=== PATIENT | female | born 1960 | race Caucasian/White ===

== ENCOUNTER 2016-05-28 20:26 | Inpatient (IN) | payer MEDICARE ==
--- NOTE | 2016-05-28 20:45 | EDPRACDOC ---
- History of Present Illness HPI: PT WAS INVOLVED IN AN ARGUMENT WITH HER SISTER OVER HER SS CHECK. PT TOOK A HANDFUL OF TYLENOL 500 MG TABS (AFTER COUNTING 71 TABS - 35,500 MG). MILD ABD PAIN. NO OTHER COMPLAINTS. DID NOT HAVE A SUICIDAL PLAN BEFORE THE ARGUMENT. H/O DEPRESSION. PT INGESTED TYLENOL ABOUT 1730. <Bhavin Herrmann - Last Filed: 05/28/16 22:55> <Annita Singleton - Last Filed: 05/29/16 02:28> - General Information Stated Complaint: OVERDOSE Time Seen by Provider: 05/28/16 20:29 Home Medications: Home Medications Acetaminophen [Tylenol Extra Strength] 35,500 mg PO .TODAY 05/28/16 Diazepam [Valium] 2 mg PO BID 05/28/16 Esomeprazole Mag Trihydrate [Nexium] 40 mg PO DAILY 05/28/16 Estradiol [Estrace] 1 mg PO DAILY 05/28/16 Isosorbide Mononitrate [Isosorbide Mononitrate ER] 30 mg PO DAILY 05/28/16 Lisinopril [Prinivil] 10 mg PO DAILY 05/28/16 Lurasidone HCl [Latuda] 80 mg PO DAILY 05/28/16 Metformin HCl 500 mg PO BID 05/28/16 Ondansetron HCl [Zofran] 8 mg PO Q8H PRN 05/28/16 Pravastatin [Pravachol] 40 mg PO HS 05/28/16 Tizanidine HCl 4 mg PO Q8H PRN 05/28/16 Tramadol HCl [Ultram] 50 mg PO Q6H PRN 05/28/16 Venlafaxine HCl ER [Effexor XR] 37.5 mg PO DAILY 05/28/16 Venlafaxine HCl [Effexor Xr] 150 mg PO DAILY 05/28/16 Allergies/Adverse Reactions: Allergies Allergy/AdvReac Type Severity Reaction Status Date / Time codeine Allergy Hives* Verified 05/28/16 20:57 - Treatment Prior to ED Arrival Reported Medications/Treatment BLUE[employer]INTER Ibuprofen/Acetaminophen (Dose/ 2 hand fulls approx 5pm Time) EMS Treatment BLS <Annita Singleton - Last Filed: 05/29/16 02:28> ED Past Medical History - History Reviewed Yes Nurses notes reviewed and agree except as marked <Bhavin Herrmann - Last Filed: 05/28/16 22:55> EDM Review of Systems - Review of Systems ROS Negative Except as Marked: Yes All systems reviewed and were negative except as marked Constitutional: No Symptoms Reported Eyes: No Symptoms Reported Mouth: No Symptoms Reported Respiratory: No Symptoms Reported Cardiovascular: No Symptoms Reported Genitourinary: No Symptoms Reported Neurological: No Symptoms Reported Musculoskeletal: No Symptoms Reported Integumentary: No Symptoms Reported Allergic/Immunologic: No Symptoms Reported <Bhavin Herrmann - Last Filed: 05/28/16 22:55> - Physical Exam Constitutional: Alert (Awake), No apparent distress Oriented to: Time, Person, Place Last recorded Vital Signs: Oxygen Pulse Oxygen Saturation O2 Device Oxygen Flow Rate Fraction of Inspired Oxygen ( FIO2) - HEENT Head: Normal ( normocephalic) Eye Exam: Normal (PERRL, EOMI, Sclera white) Oropharynx: Normal (Pharynx:Moist without exudate,Gums-no swelling) Nose: No Symptoms Reported (septum midline) Neck: Normal (FROM, trachea at midline) - Respiratory/Cardiovascular Respiratory: Normal - CTA (BBS clear to auscultation without adventitious sounds ) Cardiovascular: Normal (RRR without murmur, gallop or rub) - GI Auscultation: Normal (NABS) Palpation: Normal (Soft,No rebound or guarding, non distended) Tenderness: Non tender Michael's Sign: Negative - Musculoskeletal Back: Normal (Non-Tender) Extremities: Normal (Normal tone, Pulses 2+ No cyanosis or edema, FROM) - Integumentary Skin: Normal, Warm, Dry Lymphatics: Normal (no adenopathy) - Neurologic Memory Impaired: Normal Motor Function: Normal (Normal tone, Pulses 2+ No cyanosis or edema, FROM) Cranial Nerve: Normal (CN II-X11 intact sensation, strength 5/5) Cerebellar: Normal Mood Description: Normal Perception: Normal <Bhavin Herrmann - Last Filed: 05/28/16 22:55> - Physical Exam Last recorded Vital Signs: Last Vital Signs Temp 98.3 F 05/28/16 23:25 Pulse 60 05/28/16 23:25 Resp 18 05/28/16 23:25 BP 157/81 05/28/16 23:25 Pulse Ox 95 05/28/16 23:25 Oxygen Pulse Oxygen Saturation 92 O2 Device Room Air Oxygen Flow Rate Fraction of Inspired Oxygen ( FIO2) <Annita Singleton Lacy - Last Filed: 05/29/16 02:28> - Results 05/28/16 21:15 05/28/16 21:15 - EKG EKG #1 EKG Time: 20:57 -: Yes EKG interpreted by me Rate: bpm: 63 [place]: Normal Rhythm: NSR Block: None Hypertrophy: None ST: Nonsp Comments: ABNORMAL EKG <Bhavin Herrmann - Last Filed: 05/28/16 22:55> - Re-evaluation Re-evaluation 2 Re-evaluation Time: 02:26 REPEAT TYLENOL LEVEL WAS GOING TO TO 95. HAVE DISCUSSED WITH POISON CONTROL THEY RECOMMENDED IN ACETYLCYSTEINE TREATMENT. DR. LIANG HAS BEEN CONTACTED FOR ADMISSION PATIENT BEEN BROUGHT BACK TO EMERGENCY DEPARTMENT IV WILL BE PLACED PROTOCOL WILL BE INITIATED. - Results 05/28/16 21:15 05/28/16 21:15 WBC 9.2 xk/uL (3.8-10.8) 05/28/16 21:15 RBC 4.83 xM/uL (4.20-5.40) 05/28/16 21:15 Hgb 14.5 g/dL (12.0-16.0) 05/28/16 21:15 Hct 42.2 % (36-47) 05/28/16 21:15 MCV 87 fL (81-99) 05/28/16 21:15 MCH 30.0 pg (27-32) 05/28/16 21:15 MCHC 34.4 g/dl (33-36) 05/28/16 21:15 RDW 13.7 % (11.5-14.5) 05/28/16 21:15 Plt Count 203 xk/uL (130-400) 05/28/16 21:15 MPV 7.5 fL (7.4-10.4) 05/28/16 21:15 Neut % (Auto) 53.0 % (45-76) 05/28/16 21:15 Lymph % (Auto) 35.5 % (17-44) 05/28/16 21:15 [place] % (Auto) 8.2 % (3-10) 05/28/16 21:15 Eos % (Auto) 2.1 % (0-5) 05/28/16 21:15 Baso % (Auto) 1.2 % (0-2) 05/28/16 21:15 Absolute Neuts (auto) 4.88 xk/uL (1.7-8.2) 05/28/16 21:15 Absolute Lymphs (auto) 3.22 xk/uL (0.65-4.75) 05/28/16 21:15 PT 11.0 SEC (9.2-11.2) 05/28/16 21:15 INR 1.1 05/28/16 21:15 APTT 26.0 SEC (22-35) 05/28/16 21:15 Sodium 128 mEq/L (137-146) L 05/28/16 21:15 Potassium 3.9 mEq/L (3.5-5.1) 05/28/16 21:15 Chloride 94 mEq/L (98-107) L 05/28/16 21:15 Carbon Dioxide 23 mMOL/L (22-33) 05/28/16 21:15 Anion Gap 15 mEq/L (8-16) 05/28/16 21:15 BUN 9 MG/DL (7-17) 05/28/16 21:15 Creatinine 0.90 MG/DL (0.52-1.04) 05/28/16 21:15 Estimated GFR (MDRD) > 60 mL/min (>=60) 05/28/16 21:15 Glucose 124 MG/DL (70-99) H 05/28/16 21:15 Calculated Osmolality 247 MOs/Kg (270-290) L 05/28/16 21:15 Calcium 9.1 MG/DL (8.4-10.2) 05/28/16 21:15 Corrected Calcium 9.2 MG/DL (8.4-10.2) 05/28/16 21:15 Total Bilirubin 0.4 MG/DL (0.2-1.3) 05/28/16 21:15 AST 45 IU/L (14-36) H 05/28/16 21:15 ALT 39 IU/L (9-52) 05/28/16 21:15 Alkaline Phosphatase 72 IU/L (38-126) 05/28/16 21:15 Total Protein 6.9 G/DL (6.3-8.2) 05/28/16 21:15 Albumin 3.9 G/DL (3.5-5.0) 05/28/16 21:15 Salicylates < 1.0 MG/DL (<20) 05/28/16 21:15 Urine Opiates Screen Neg (NEGATIVE) 05/28/16 20:40 Ur Oxycodone Screen Neg (NEGATIVE) 05/28/16 20:40 Urine Methadone Screen Neg (NEGATIVE) 05/28/16 20:40 Acetaminophen 95.0 MCG/ML (<10) H 05/29/16 00:31 Ur Barbiturates Screen Neg (NEGATIVE) 05/28/16 20:40 Ur Tricyclics Screen Neg (NEGATIVE) 05/28/16 20:40 Ur Phencyclidine Scrn Neg (NEGATIVE) 05/28/16 20:40 Ur Amphetamines Screen Neg (NEGATIVE) 05/28/16 20:40 U Methamphetamines Scrn Neg (NEGATIVE) 05/28/16 20:40 Urine MDMA Screen Neg (NEGATIVE) 05/28/16 20:40 U Benzodiazepines Scrn *positive* (NEGATIVE) H 05/28/16 20:40 Urine Cocaine Screen Neg (NEGATIVE) 05/28/16 20:40 Ur THC Screen Neg (NEGATIVE) 05/28/16 20:40 Plasma/Serum Ethyl Alc % (<0.01) 05/28/16 21:15 Lab Results 05/28/16 05/28/16 05/28/16 21:15 21:15 21:15 WBC 9.2 RBC 4.83 Hgb 14.5 Hct 42.2 MCV 87 MCH 30.0 MCHC 34.4 RDW 13.7 Plt Count 203 MPV 7.5 Neut % (Auto) 53.0 Lymph % (Auto) 35.5 [place] % (Auto) 8.2 Eos % (Auto) 2.1 Baso % (Auto) 1.2 Absolute Neuts (auto) 4.88 Absolute Lymphs (auto) 3.22 PT 11.0 INR 1.1 APTT 26.0 Sodium 128 L Potassium 3.9 Chloride 94 L Carbon Dioxide 23 Anion Gap 15 BUN 9 Creatinine 0.90 Estimated GFR (MDRD) > 60 Glucose 124 H Calculated Osmolality 247 L Calcium 9.1 Corrected Calcium 9.2 Total Bilirubin 0.4 AST 45 H ALT 39 Alkaline Phosphatase 72 Total Protein 6.9 Albumin 3.9 Salicylates < 1.0 Urine Opiates Screen Ur Oxycodone Screen Urine Methadone Screen Acetaminophen 60.0 H Ur Barbiturates Screen Ur Tricyclics Screen Ur Phencyclidine Scrn Ur Amphetamines Screen U Methamphetamines Scrn Urine MDMA Screen U Benzodiazepines Scrn Urine Cocaine Screen Ur THC Screen Plasma/Serum Ethyl Alc 05/28/16 20:40 WBC RBC Hgb Hct MCV MCH MCHC RDW Plt Count MPV Neut % (Auto) Lymph % (Auto) [place] % (Auto) Eos % (Auto) Baso % (Auto) Absolute Neuts (auto) Absolute Lymphs (auto) PT INR APTT Sodium Potassium Chloride Carbon Dioxide Anion Gap BUN Creatinine Estimated GFR (MDRD) Glucose Calculated Osmolality Calcium Corrected Calcium Total Bilirubin AST ALT Alkaline Phosphatase Total Protein Albumin Salicylates Urine Opiates Screen Neg Ur Oxycodone Screen Neg Urine Methadone Screen Neg Acetaminophen Ur Barbiturates Screen Neg Ur Tricyclics Screen Neg Ur Phencyclidine Scrn Neg Ur Amphetamines Screen Neg U Methamphetamines Scrn Neg Urine MDMA Screen Neg U Benzodiazepines Scrn *positive* H Urine Cocaine Screen Neg Ur THC Screen Neg Plasma/Serum Ethyl Alc <Annita Singleton - Last Filed: 05/29/16 02:28> - Departure Yes I personally saw and evaluated the patient. <Bhavin Herrmann - Last Filed: 05/28/16 22:55> - Departure Disposition: Admit IP To This Hospital Decision to Admit Time: 02:27 Decision to admit date: 05/29/16 Decision to admit: from ED - Physician Consulted Hospitalist Time Called: 02:27 Provider Called: Michele Franklin Time [employer] Returned Call: 02:27 <Annita Singleton - Last Filed: 05/29/16 02:28> - Departure Final Diagnosis: Depression Qualifiers: Depression Type: unspecified Qualified Code(s): F32.9 - Major depressive disorder, single episode, unspecified Tylenol overdose Qualifiers: Encounter type: initial encounter Injury intent: intentional self-harm Qualified Code(s): T39.1X2A - Poisoning by 4-Aminophenol derivatives, intentional self-harm, initial encounter
[2016-05-28] MEDS ORDERED: ACTIVATED CHARCOAL 25 GM in AQUEOUS SUSP PO ONE (20:49)
[2016-05-28 20:52] LABS: ALL NEG? NO
[2016-05-28 20:59] LABS: MDMA* NEG (NEGATIVE); METHAMPHETAMINES NEG (NEGATIVE); OXYCODONE NEG (NEGATIVE)
[2016-05-28 21:25] LABS: AUTOMATED BASOPHIL 1.2 % (0-2); AUTOMATED EOSINOPHIL 2.1 % (0-5); AUTOMATED LYMPH 35.5 % (17-44); AUTOMATED MONOCYTE 8.2 % (3-10); MPV 7.5 fL (7.4-10.4)
[2016-05-28 21:36] LABS: PT-INR 1.1
[2016-05-28 21:42] LABS: BLOOD UREA NITROGEN 9 MG/DL (7-17); CALC CORRECTED 9.2 MG/DL (8.4-10.2); CALCIUM 9.1 MG/DL (8.4-10.2); CALCULATED OSMOLALITY 247 MOs/Kg (270-290); CHLORIDE 94 mEq/L (98-107); ETOH-MGDL < 10 mg/dL; GLUCOSE 124 MG/DL (70-99); SODIUM LEVEL 128 mEq/L (137-146); TOTAL PROTEIN 6.9 G/DL (6.3-8.2)
[2016-05-28] MEDS ORDERED: ONDANSETRON HCL 4 MG ODT TAB PO PRN (22:56)
[2016-05-28] MEDS ORDERED: IBUPROFEN 400 MG TAB PO PRN (22:56)
[2016-05-28] MEDS ORDERED: PROMETHAZINE 25 MG TAB PO PRN (22:56)
[2016-05-28] MEDS ORDERED: NICOTINE 21 MG PATCH TOP SCH (23:00)
[2016-05-29] MEDS ORDERED: Non-Formulary Medication 1 in D5W 100 ML IV SCH ×2 (02:45→04:00)
[2016-05-29] MEDS ORDERED: ACETYLCYSTEINE IV ONE (03:00)
[2016-05-29] MEDS ORDERED: D5W IV ONE (03:00)
--- NOTE | 2016-05-29 03:08 | HISTPHYS ---
- Chief Complaint overdose - History of Present Illness PRIMARY CARE PROVIDER: FIFI Donovan, in [facility] HPI: The patient is a 56 yo woman who had an argument with her sister then took multiple tables of Tylenol. She took the pills right after the argument, yesterday, 05/28/16 around 6 pm. She took 3 handfuls of Tylenol, 500 mg tablets; she took them all at once. She had taken her evening doses of prescribed medications before that. She felt like there were too many burdens on her and she "just wanted to get away from it." She is evasive when asked if she was trying to kill herself and does not answer the question. She was brought to the emergency department and had treatment with activated charcoal. After treatment, she has had some abdominal pain. Onset: today Duration: intermittent. Location: abdominal pain in the lower abdomen but also generalized. Radiation: none. Character: 12/25. Steady discomfort. Alleviated by: Nothing. Exacerbated by: Nothing. Associated Symptoms: Nausea. No vomiting. No diarrhea, constipation, or bloody stool. Mild chest pain, started today. Treatments: none at home except usual medications. Regarding the chest pain: Onset: today Duration: intermittent. Location: Radiation: none. Character: 11/24. Dull. It hurts when she breathes. Alleviated by: Nothing. Exacerbated by: Nothing. Associated Symptoms: Nausea. No vomiting. No diarrhea, constipation, or bloody stool. Shortness of breath. Diaphoresis on the way to the hospital. No palpitations. Coughing and wheezing. Reports feeling anxious and like she was having a panic attack. Headache, all over. No focal weakness. Treatments: none at home except usual medications. Other: Patient admits to drinking copious amounts of water at home. She states she drinks the water because her mouth is always dry. Review of old records shows that she had an episode of hyponatremia in the past, but other records show a normal sodium level. - Medical History Cardiac History: Reports: Hypertension, Hypercholesterolemia Respiratory History: Reports: Asthma, COPD (Exacerbation 01/2016 at [facility]) GI/ History: Reports: Gastroesophageal Reflux (and fatty liver. Irritable bowel syndrome.) Psychological History: Reports: Depression, Anxiety, Bipolar Disorder - Surgical History Reports: Appendectomy, Cholecystectomy, Hysterectomy - Medictions/Allergies Allergies codeine Allergy (Verified 05/28/16 20:57) Hives* Current Medication List: Reviewed Home Medications Acetaminophen [Tylenol Extra Strength] 35,500 mg PO .TODAY 05/28/16 Diazepam [Valium] 2 mg PO BID 05/28/16 Esomeprazole Mag Trihydrate [Nexium] 40 mg PO DAILY 05/28/16 Estradiol [Estrace] 1 mg PO DAILY 05/28/16 Isosorbide Mononitrate [Isosorbide Mononitrate ER] 30 mg PO DAILY 05/28/16 Lisinopril [Prinivil] 10 mg PO DAILY 05/28/16 Lurasidone HCl [Latuda] 80 mg PO DAILY 05/28/16 Metformin HCl 500 mg PO BID 05/28/16 Ondansetron HCl [Zofran] 8 mg PO Q8H PRN 05/28/16 Pravastatin [Pravachol] 40 mg PO HS 05/28/16 Tizanidine HCl 4 mg PO Q8H PRN 05/28/16 Tramadol HCl [Ultram] 50 mg PO Q6H PRN 05/28/16 Venlafaxine HCl ER [Effexor XR] 37.5 mg PO DAILY 05/28/16 Venlafaxine HCl [Effexor Xr] 150 mg PO DAILY 05/28/16 - Family History Reports: Cancer (Mother: lung, smoker. Father: pancreatic cancer.), Cardiac Disorders (M uncle, MGM: [place].) - Social History Travel Outside of [place] in the Last 3 Months?: No Lives: Alone Smoking Status: Heavy tobacco smoker (5 or more cigarettes/day or daily pipe/ cigar) (Currently 3 or more ppd. Started 15yo.) Social History: Denies: Alcohol Use, Substance Use Disorder - Review of Systems GENERAL: No Fever, chills. Diaphoresis. Positive for fatigue/malaise. HEENT: No nasal discharge or bleeding. No throat pain or swelling. No eye pain or eye redness. RESPIRATORY: Cough, wheezing, and shortness of breath. CARDIOVASCULAR: Chest pain. No palpitations. GI: Mild abdominal pain. Nausea. No vomiting, diarrhea, constipation, or bloody stool. NEUROLOGICAL: No headache or focal weakness. INTEGUMENT: no rashes, itching, or lesions. LYMPHATIC SYSTEM: no lymph node swelling or pain. MUSCULOSKELETAL: no new pain or joint swelling. GENITOURINARY: No dysuria or hematuria. ENDOCRINE: Has polyuria. Polydipsia - she drinks due to dry mouth. HEME: No chronic anemia, bleeding. Positive for easy bruising. - Physical Exam Vital Signs: Initial Vitals Temperature 99.0 F 05/28/16 20:30 Pulse Rate 66 05/28/16 20:30 Respiratory Rate 18 05/28/16 20:30 Blood Pressure 170/83 05/28/16 20:30 Pulse Oxygen Saturation 95 05/28/16 20:30 Vital Signs - 24 hr 05/28/16 05/28/16 05/28/16 20:30 20:46 21:01 Temperature 99.0 F Pulse Rate 66 67 68 Respiratory 18 18 18 Rate Blood Pressure 170/83 165/72 160/71 Pulse Oxygen 95 95 95 Saturation 05/28/16 05/28/16 05/28/16 21:31 22:01 23:01 Temperature 97.9 F Pulse Rate 62 62 60 Respiratory 22 16 15 Rate Blood Pressure 153/72 145/74 148/79 Pulse Oxygen 92 92 94 Saturation 05/28/16 23:25 Temperature 98.3 F Pulse Rate 60 Respiratory 18 Rate Blood Pressure 157/81 Pulse Oxygen 95 Saturation Weight: 84.8 kg Height: 5 feet 3 inches BMI: 33.1 - Other Exam Other Exam Findings: GENERAL: Ill-appearing, well nourished, no acute distress. HEENT: Normocephalic, atraumatic; pupils equal and round. Nares patent, without discharge or bleeding. No oropharyngeal lesions or erythema. Mucous membranes are dry. NECK: is supple, no masses, trachea midline. RESPIRATORY: Clear to auscultation bilaterally. Chest wall movements are symmetric. No use of accessory muscles to breathe. No tachypnea. Minimal scattered wheezing. No rales, rhonchi. CARDIOVASCULAR: Normal S1, S2. No murmurs, rubs, or gallops. PMI non-displaced. Carotids: no carotid bruits. No bradycardia or tachycardia. DP pulses 2+ bilaterally. GI: soft, non-distended, normal active bowel sounds. No hepatosplenomegaly. Minimal generalized tenderness. INTEGUMENT: Clean, dry, and intact. No rashes. No lesions. MUSCULOSKELETAL: Moving all extremities. No cyanosis. No clubbing. Edema: none bilaterally. NEUROLOGICAL: Cranial nerves 2-12 grossly intact. Motor 5/5 throughout. Reflexes : 2+ bilaterally. Babinski: toes downgoing bilaterally. Intact Finger to nose. Sensory grossly intact to light touch. Intact rapid alternating movements bilaterally. No pronator drift. PSYCHIATRIC: Fully oriented. Flat affect. LYMPHATIC: No cervical lymphadenopathy. No supraclavicular lymphadenopathy. - Lab Results Laboratory Results - last 24 hr 05/28/16 05/28/16 05/28/16 20:40 21:15 21:15 WBC 9.2 RBC 4.83 Hgb 14.5 Hct 42.2 MCV 87 MCH 30.0 MCHC 34.4 RDW 13.7 Plt Count 203 MPV 7.5 Neut % (Auto) 53.0 Lymph % (Auto) 35.5 [place] % (Auto) 8.2 Eos % (Auto) 2.1 Baso % (Auto) 1.2 Absolute Neuts (auto) 4.88 Absolute Lymphs (auto) 3.22 PT INR APTT Sodium 128 L Potassium 3.9 Chloride 94 L Carbon Dioxide 23 Anion Gap 15 BUN 9 Creatinine 0.90 Estimated GFR (MDRD) > 60 Glucose 124 H Calculated Osmolality 247 L Calcium 9.1 Corrected Calcium 9.2 Total Bilirubin 0.4 AST 45 H ALT 39 Alkaline Phosphatase 72 Total Protein 6.9 Albumin 3.9 Salicylates < 1.0 Urine Opiates Screen Neg Ur Oxycodone Screen Neg Urine Methadone Screen Neg Acetaminophen 60.0 H Ur Barbiturates Screen Neg Ur Tricyclics Screen Neg Ur Phencyclidine Scrn Neg Ur Amphetamines Screen Neg U Methamphetamines Scrn Neg Urine MDMA Screen Neg U Benzodiazepines Scrn *positive* H Urine Cocaine Screen Neg Ur THC Screen Neg Plasma/Serum Ethyl Alc 05/28/16 05/29/16 21:15 00:31 WBC RBC Hgb Hct MCV MCH MCHC RDW Plt Count MPV Neut % (Auto) Lymph % (Auto) [place] % (Auto) Eos % (Auto) Baso % (Auto) Absolute Neuts (auto) Absolute Lymphs (auto) PT 11.0 INR 1.1 APTT 26.0 Sodium Potassium Chloride Carbon Dioxide Anion Gap BUN Creatinine Estimated GFR (MDRD) Glucose Calculated Osmolality Calcium Corrected Calcium Total Bilirubin AST ALT Alkaline Phosphatase Total Protein Albumin Salicylates Urine Opiates Screen Ur Oxycodone Screen Urine Methadone Screen Acetaminophen 95.0 H Ur Barbiturates Screen Ur Tricyclics Screen Ur Phencyclidine Scrn Ur Amphetamines Screen U Methamphetamines Scrn Urine MDMA Screen U Benzodiazepines Scrn Urine Cocaine Screen Ur THC Screen Plasma/Serum Ethyl Alc - Diagnostic Findings EK bpm. Normal sinus rhythm. Nonspecific T wave abnormality. Reviewed EKG personally. - Assessment (1) Intentional acetaminophen overdose T39.1X2A - POISONING BY 4-AMINOPHENOL DERIVATIVES, SELF-HARM, INIT Acute Present on Admission: Yes Qualifiers: Encounter type: initial encounter Qualified Code(s): T39.1X2A - Poisoning by 4-Aminophenol derivatives, intentional self-harm, initial encounter Second tylenol level returned more elevated. Poison control contactacted. Plan: Toxicology protocol for Tylenol overdose. N-acetylcysteine loading dose IV, then maintenance dose. Check Tylenol level again at 22 hours after loading dose. Goal is Tylenol level of zero. (2) Suicide attempt T14.91 - SUICIDE ATTEMPT Acute Present on Admission: Yes Patient appears to have had an impulsive suicide attempt by taking and overdose of tylenol. Plan: Mental health has evaluated the patient. She has agreed to voluntary commitment. If she attempts to leave, would recommend IVC. Suicide precautions with sitter. (3) Hyponatremia E87.1 - HYPO-OSMOLALITY AND HYPONATREMIA Acute Present on Admission: Yes Patient admits to drinking copious amounts of water at home. She states she drinks the water because her mouth is always dry. Review of old records shows that she had an episode of hyponatremia in the past, but other records show a normal sodium level. Plan: Patient advised to decrease the amount of water intake. Restrict free water. Avoid IVF if possible. Recheck Na level. (4) Tobacco abuse Z72.0 - TOBACCO USE Acute Present on Admission: Yes Counseled to quit. Ordered nicotine patch. (5) Shortness of breath R06.02 - SHORTNESS OF BREATH Acute Present on Admission: Yes O2 saturation 95% on rom air. Suspect this is more of a chronic issue related to her smoking and COPD. Could also be due to anxiety and a panic attack. The chest pain is likely due to a panic attack and anxiety. Plan: Monitor lung exam. Consider neb treatments as needed. Consider treatment for anxiety. (6) Type 2 diabetes mellitus with hyperglycemia E11.65 - TYPE 2 DIABETES MELLITUS WITH HYPERGLYCEMIA Acute Present on Admission: Yes Plan: Hold oral diabetes medications. Check fingerstick blood sugars q ac and hs. Sliding scale insulin. Ordered A1c and urine microalbumin. Case Care Discussed with: Patient, Nursing Staff, Other (Emergency department physician.)
[2016-05-29] MEDS ORDERED: D5W IV SCH ×2 (04:00)
[2016-05-29] MEDS ORDERED: ACETYLCYSTEINE IV SCH ×2 (04:00)
[2016-05-29] MEDS: D5W IV SCH (04:33)
[2016-05-29] MEDS: ACETYLCYSTEINE IV SCH (04:33)
[2016-05-29] MEDS ORDERED: ONDANSETRON HCL 8 MG PO PRN (08:42)
[2016-05-29] MEDS ORDERED: Non-Formulary Medication ITEM (Tizanidine Hcl [Tizanidine Hcl] 4 MG) PO PRN (08:42)
[2016-05-29] MEDS ORDERED: ONDANSETRON HCL 4 MG ODT TAB PO PRN (08:49)
[2016-05-29] MEDS ORDERED: TIZANIDINE 2 MG TAB PO PRN (08:49)
[2016-05-29] MEDS ORDERED: Non-Formulary Medication ITEM (Esomeprazole Mag Trihydrate [Nexium] 40 MG) PO SCH (09:00)
[2016-05-29] MEDS: NICOTINE 21 MG PATCH TOP SCH (09:53)
[2016-05-29] MEDS: ISOSORBIDE MONONITRATE 30 MG TAB PO SCH (09:53)
[2016-05-29] MEDS: VENLAFAXINE XR 37.5 MG CAP PO SCH (09:55)
[2016-05-29] MEDS: MetFORMIN 500 MG IMMED RELEASE TAB PO SCH ×2 (09:55→18:06)
[2016-05-29] MEDS: PANTOPRAZOLE 40 MG TAB PO SCH (09:56)
[2016-05-29] MEDS: ESTRADIOL 1 MG TAB PO SCH (09:56)
[2016-05-29] MEDS: DIAZEPAM 2 MG TAB PO SCH ×2 (09:56→20:32)
[2016-05-29] MEDS: LISINOPRIL 10 MG TAB PO SCH (09:56)
[2016-05-29] MEDS: VENLAFAXINE XR 150 MG CAP PO SCH (09:57)
[2016-05-29] MEDS: LURASIDONE HCL 80 MG PO SCH (09:57)
[2016-05-29] MEDS ORDERED: GUAIFEN 100 MG-DEXTROMETH 10 MG PER 5 ML PO PRN (11:16)
[2016-05-29] MEDS ORDERED: DEXTROSE 25 GM/50 ML PFS IV PRN (11:16)
[2016-05-29] MEDS ORDERED: SENNA CONCENTRATE TAB PO PRN (11:16)
[2016-05-29] MEDS ORDERED: GLUCAGON 1 MG VIAL SQ PRN (11:16)
[2016-05-29] MEDS ORDERED: SIMETHICONE 80 MG TAB PO PRN (11:16)
[2016-05-29] MEDS ORDERED: BISACODYL 5 MG TAB PO PRN (11:16)
[2016-05-29] MEDS ORDERED: GLUCOSE (ORAL GEL) 15 GM TUBE PO PRN (11:16)
[2016-05-29] MEDS ORDERED: BENZONATATE 100 MG PERLES PO PRN (11:16)
[2016-05-29] MEDS ORDERED: PROMETHAZINE 25 MG/ML VIAL IV PRN (11:16)
[2016-05-29] MEDS ORDERED: Albuterol/Ipratropium Neb 3 ML NEB NEB SCH (11:39)
[2016-05-29] MEDS ORDERED: Albuterol/Ipratropium Neb 3 ML NEB NEB PRN (11:46)
[2016-05-29 11:59] VITALS: BMI 31.8
[2016-05-29] MEDS ORDERED: METOPROLOL TARTRATE 50 MG TAB PO ONE (12:17)
[2016-05-29] MEDS: ONDANSETRON HCL 4 MG/2 ML VIAL IV PRN ×2 (12:55→20:33)
[2016-05-29] MEDS: REGULAR INSULIN 100 UNITS/ML - 3 ML VIAL SQ SCH ×3 (13:11→20:32)
[2016-05-29 13:28] LABS: BLOOD UREA NITROGEN 5 MG/DL (7-17); CALCIUM 9.7 MG/DL (8.4-10.2); CALCULATED OSMOLALITY 257 MOs/Kg (270-290); CHLORIDE 98 mEq/L (98-107); GLUCOSE 130 MG/DL (70-99); SODIUM LEVEL 134 mEq/L (137-146)
[2016-05-29] MEDS: ENOXAPARIN 40 MG/0.4 ML PFS SQ SCH (17:30)
[2016-05-29] MEDS: hydrALAZINE 20 MG/ML VIAL IV PRN (17:33)
[2016-05-29] MEDS ORDERED: Vaccine Screening Complete SCH (18:00)
--- NOTE | 2016-05-29 18:42 | GENMEDPROG ---
Note Management of Tylenol overdose and blood pressure
[2016-05-29] MEDS: PRAVASTATIN 40 MG TABLET PO SCH (20:32)
[2016-05-29] MEDS: METOPROLOL TARTRATE 50 MG TAB PO SCH (20:32)
[2016-05-30] MEDS: hydrALAZINE 20 MG/ML VIAL IV PRN (01:11)
[2016-05-30] MEDS: TRAMADOL HCL 50 MG TAB PO PRN ×2 (01:49→08:27)
[2016-05-30 02:36] LABS: PT-INR 1.2
[2016-05-30 02:38] LABS: BLOOD UREA NITROGEN 11 MG/DL (7-17); CALC CORRECTED 10.1 MG/DL (8.4-10.2); CALCULATED OSMOLALITY 257 MOs/Kg (270-290); CHLORIDE 96 mEq/L (98-107); GLUCOSE 127 MG/DL (70-99); SODIUM LEVEL 133 mEq/L (137-146); TOTAL PROTEIN 6.9 G/DL (6.3-8.2)
[2016-05-30] MEDS: NICOTINE 21 MG PATCH TOP SCH (04:01)
[2016-05-30] MEDS: D5W IV SCH (06:36)
[2016-05-30] MEDS: ACETYLCYSTEINE IV SCH (06:36)
[2016-05-30] MEDS: REGULAR INSULIN 100 UNITS/ML - 3 ML VIAL SQ SCH ×4 (07:33→21:10)
[2016-05-30] MEDS: ISOSORBIDE MONONITRATE 30 MG TAB PO SCH (07:38)
[2016-05-30] MEDS: PANTOPRAZOLE 40 MG TAB PO SCH (07:39)
[2016-05-30] MEDS ORDERED: PNEUMOCOCCAL 0.5 ML VIAL IM ONE (08:00)
[2016-05-30] MEDS: DIAZEPAM 2 MG TAB PO SCH ×2 (08:26→21:23)
[2016-05-30] MEDS: ESTRADIOL 1 MG TAB PO SCH (08:26)
[2016-05-30] MEDS: LISINOPRIL 10 MG TAB PO SCH (08:26)
[2016-05-30] MEDS: LURASIDONE HCL 80 MG PO SCH (08:26)
[2016-05-30] MEDS: VENLAFAXINE XR 150 MG CAP PO SCH (08:26)
[2016-05-30] MEDS: VENLAFAXINE XR 37.5 MG CAP PO SCH (08:27)
[2016-05-30] MEDS: METOPROLOL TARTRATE 50 MG TAB PO SCH ×2 (08:27→21:23)
[2016-05-30] MEDS: MetFORMIN 500 MG IMMED RELEASE TAB PO SCH ×2 (10:02→17:23)
--- NOTE | 2016-05-30 10:12 | GENMEDPROG ---
Subjective Note: Patient in bed alert awake oriented responsive. Looking down and depressed. Follows commands. Denies and difficulties breathing cough or phlegm production. Tolerating diet. Denies any nausea vomiting or abdominal pain. Notes Reviewed: Yes Events from last night noted and discussed with Clinical Staff Current Medication List: Reviewed Currently: Reports: MCKEON, Sputum, Tobacco Use/Hx, Reflux Sx DVT Prophylaxis: Yes - Physical Examination Vital Signs and I&O: Last Vital Signs Temp 98.7 F 05/30/16 07:00 Pulse 58 L 05/30/16 09:00 Resp 20 05/30/16 07:00 BP 174/79 05/30/16 09:00 Pulse Ox 94 05/30/16 09:00 Oxygen Pulse Oxygen Saturation 94 O2 Device Room Air Oxygen Flow Rate Fraction of Inspired Oxygen ( FIO2) Intake & Output 05/27/16 05/28/16 05/29/16 05/30/16 23:59 23:59 23:59 23:59 Intake Total 708 517 Output Total 675 100 Balance 33 417 Patient's weight 81.5 kg 81.5 kg General: Alert, Oriented x3, Cooperative, Mild distress HEENT: Normal, PERRLA, EOMI, Anicteric Sclera Neck: Non-tender, Normal Trachea alignment, Limited range of motion Lymphatics: Normal (no adenopathy) Respiratory: Normal - CTA (BBS clear to auscultation without adventitious sounds ), Diminished, Rhonchi Cardiovascular: Regular rate, Normal S1, Normal S2 GI: Normal bowel sounds, Soft, Non tender, No hepatospenomegaly, No masses, Obese Extremities/Musculoskeletal: Normal pulses, DJD Skin: Warm,Dry and Intact, No rashes, No breakdown, No significant lesion Neurological: Normal speech, Normal tone, Cranial nerves 3-12 NL Psych/Mental Status: Anxious, Other (depressed) Lab/DI/Studies Reviewed: Allergies codeine Allergy (Verified 05/29/16 16:48) Hives* Last Vital Signs Temp 98.7 F 05/30/16 07:00 Pulse 58 L 05/30/16 09:00 Resp 20 05/30/16 07:00 BP 174/79 05/30/16 09:00 Pulse Ox 94 05/30/16 09:00 05/28/16 21:15 05/30/16 02:00 Abnormal Lab Results 05/29/16 05/29/16 05/29/16 12:26 12:30 12:30 PT Sodium 134 L Chloride Carbon Dioxide 21 L Anion Gap 20 H BUN 5 L Creatinine Estimated GFR (MDRD) Glucose 130 H POC Capillary Glucose 140 H Hemoglobin A1c 6.4 H Calculated Osmolality 257 L 05/29/16 05/29/16 05/30/16 16:50 20:31 02:00 PT Sodium 133 L Chloride 96 L Carbon Dioxide 19 L Anion Gap 22 H BUN Creatinine 1.10 H D Estimated GFR (MDRD) 51 L Glucose 127 H POC Capillary Glucose 117 H 133 H Hemoglobin A1c Calculated Osmolality 257 L 05/30/16 05/30/16 02:00 06:35 PT 12.7 H Sodium Chloride Carbon Dioxide Anion Gap BUN Creatinine Estimated GFR (MDRD) Glucose POC Capillary Glucose 113 H Hemoglobin A1c Calculated Osmolality - Assessment (1) Intentional acetaminophen overdose Acute T39.1X2A - POISONING BY 4-AMINOPHENOL DERIVATIVES, SELF-HARM, INIT Qualifiers: Encounter type: initial encounter Qualified Code(s): T39.1X2A - Poisoning by 4-Aminophenol derivatives, intentional self-harm, initial encounter Comment/Plan: Received Mucomyst. Tylenol level less than 10 today (2) Suicide attempt Acute T14.91 - SUICIDE ATTEMPT Comment/Plan: Seen by Psychiatry services, been involuntarily committed to inpatient psych treatment. (3) Depression Acute F32.9 - MAJOR DEPRESSIVE DISORDER, SINGLE EPISODE, UNSPECIFIED Qualifiers: Depression Type: unspecified Qualified Code(s): F32.9 - Major depressive disorder, single episode, unspecified Comment/Plan: Continue meds. For inpatient psych therapy. (4) HTN (hypertension) Chronic I10 - ESSENTIAL (PRIMARY) HYPERTENSION Qualifiers: Hypertension type: essential hypertension Qualified Code(s): I10 - Essential (primary) hypertension Comment/Plan: Adjust meds keep SBP around 140. Change lisinopril to 40 mg daily. (5) Type 2 diabetes mellitus with hyperglycemia Chronic E11.65 - TYPE 2 DIABETES MELLITUS WITH HYPERGLYCEMIA Qualifiers: Diabetes mellitus termination clerk insulin use: without termination clerk use Qualified Code(s): E11.65 - Type 2 diabetes mellitus with hyperglycemia Comment/Plan: Continue ADA diet and oral agent.. (6) GERD (gastroesophageal reflux disease) Acute K21.9 - GASTRO-ESOPHAGEAL REFLUX DISEASE WITHOUT ESOPHAGITIS Qualifiers: Esophagitis presence: without esophagitis Qualified Code(s): K21.9 - Gastro -esophageal reflux disease without esophagitis Comment/Plan: continue ppi Case Care Discussed with: Patient, Consultants, Nursing Staff, Heel Nail Rasper Education/Counseling Given To: Patient Education/Counseling Given Regarding: Diagnosis, Treatment, Prognosis, Follow Up Total Time: 50 min . Critical Care: No Code: 22734 (12+)
[2016-05-30] MEDS ORDERED: NS 1,000 ML IV SCH (10:13)
[2016-05-30] MEDS ORDERED: LISINOPRIL 20 MG TAB PO ONE (10:30)
[2016-05-30] MEDS: ENOXAPARIN 40 MG/0.4 ML PFS SQ SCH (17:23)
--- NOTE | 2016-05-30 17:46 | PCM.DCS92 ---
- Final/Secondary Discharge Diagnosis (1) Intentional acetaminophen overdose Acute T39.1X2A - POISONING BY 4-AMINOPHENOL DERIVATIVES, SELF-HARM, INIT Present on Admission: Yes initial encounter T39.1X2A - Poisoning by 4-Aminophenol derivatives, intentional self-harm, initial encounter Comment: Received Mucomyst. Tylenol level less than 10 today. For inpatient psych therapy (2) Suicide attempt Acute T14.91 - SUICIDE ATTEMPT Present on Admission: Yes Comment: Seen by Psychiatry services, stable for transfer to psych institution (3) Depression Acute F32.9 - MAJOR DEPRESSIVE DISORDER, SINGLE EPISODE, UNSPECIFIED Present on Admission: Yes major depressive disorder F32.9 - Major depressive disorder, single episode , unspecified Comment: Continue meds. For inpatient psych therapy. (4) HTN (hypertension) Chronic I10 - ESSENTIAL (PRIMARY) HYPERTENSION essential hypertension I10 - Essential (primary) hypertension Comment: Adjust meds keep SBP around 140. Change lisinopril to 40 mg daily. (5) Type 2 diabetes mellitus with hyperglycemia Chronic E11.65 - TYPE 2 DIABETES MELLITUS WITH HYPERGLYCEMIA Present on Admission: Yes without assisted use E11.65 - Type 2 diabetes mellitus with hyperglycemia Comment: Continue ADA diet and oral agent.. (6) GERD (gastroesophageal reflux disease) Acute K21.9 - GASTRO-ESOPHAGEAL REFLUX DISEASE WITHOUT ESOPHAGITIS without esophagitis K21.9 - Gastro-esophageal reflux disease without esophagitis Comment: continue ppi Discharge Disposition: Trans. to Other Hospital Discharge Condition: Improved Cognitive Discharge Status: Unimpaired Fuctional Discharge Status: Independent Physician Follow up/Referrals: None,No Provider [Family Provider] - One Week O2 Device: Room Air Diet at Discharge: Heart Healthy, High Fiber Activity: As Tolerated Call Office For: Fever over 101 F Discontinue use of:: Alcohol, All Illegal Substances, All Types of Tobacco - DC Summary Notes Hospital Course Note:: Discharge summary on patient named AYDEN STARKS admitted to [facility] on 05/29/16 by Bhavin Herrmann DO. Date of discharge is []. Patient was brought to emergency room on May 29 Tylenol overdose in suicidal attempt. Patient in argument with her sister and took 3 handfuls of Tylenol 500 mg tablets. She was subsequent brought to emergency room. Her initial Tylenol level was 95. Treatment of activated charcoal was instituted patient was admitted to ICU. Suicidal watch was instituted as well. Aggressive aggressive IV hydration was provided.. Most of the outpatient regimen for chronic medical conditions was continued. Repeated Tylenol levels were less than 10. Patient was seen and evaluated by psych services and involuntary commitment papers well filled out. Patient expressed regret over her actions and was in full agreement with inpatient treatment. On May 30 patient has been transferred to psych hospital for inpatient treatment. Total Time: 45 min . Code: 81987 (>30min.) - Physical Exam Vital Signs: Last Vital Signs Temp 97.9 F 05/30/16 13:00 Pulse 96 05/30/16 17:00 Resp 18 05/30/16 13:00 BP 115/67 05/30/16 17:00 Pulse Ox 95 05/30/16 17:00 Oxygen Pulse Oxygen Saturation 95 O2 Device Room Air Oxygen Flow Rate Fraction of Inspired Oxygen ( FIO2) Constitutional: Alert (Awake), No apparent distress Oriented to: Time, Person, Place - HEENT Head: Normal ( normocephalic) Eye: Normal (PERRL, EOMI, Sclera white) Oropharynx: Normal (Pharynx:Moist without exudate,Gums-no swelling) ENT EAC: Normal Nose: No Symptoms Reported (septum midline) - Respiratory/Cardiovascular Respiratory: Normal - CTA (BBS clear to auscultation without adventitious sounds ), Diminished, Rhonchi Cardiovascular: Normal, Systolic murmur - GI Auscultation: Normal (NABS) Palpation: Normal (Soft,No rebound or guarding, non distended) Tenderness: Non tender Michael's Sign: Negative - Exam Deferred: Yes - Musculoskeletal Back: Normal (Non-Tender) Extremities: Normal (Normal tone, Pulses 2+ No cyanosis or edema, FROM) - Integumentary Skin: Normal, Warm, Dry Lymphatics: Normal (no adenopathy) - Neurologic Memory Impaired: Normal Motor Function: Normal Cranial Nerve: Normal Cerebellar: Normal Mood Description: Normal, Anxious, Other (depressed) Perception: Normal - Other Exam Other Exam Findings: Allergies codeine Allergy (Verified 05/29/16 16:48) Hives* 05/28/16 21:15 05/30/16 02:00 Abnormal Lab Results 05/29/16 05/30/16 05/30/16 20:31 02:00 02:00 PT 12.7 H Sodium 133 L Chloride 96 L Carbon Dioxide 19 L Anion Gap 22 H Creatinine 1.10 H D Estimated GFR (MDRD) 51 L Glucose 127 H POC Capillary Glucose 133 H Calculated Osmolality 257 L 05/30/16 05/30/16 05/30/16 06:35 10:57 17:05 PT Sodium Chloride Carbon Dioxide Anion Gap Creatinine Estimated GFR (MDRD) Glucose POC Capillary Glucose 113 H 131 H 164 H Calculated Osmolality Last Vital Signs Temp 97.9 F 05/30/16 13:00 Pulse 96 05/30/16 17:00 Resp 18 05/30/16 13:00 BP 115/67 05/30/16 17:00 Pulse Ox 95 05/30/16 17:00
[2016-05-30 20:32] VITALS: BP 153/72; PULSE 67; TEMP 98.6
[2016-05-30] MEDS: PRAVASTATIN 40 MG TABLET PO SCH (21:23)
[2016-05-31] MEDS ORDERED: LISINOPRIL 40 MG TAB PO SCH (09:00)
== END 2016-05-30 21:30 | DRG 918 ==
LOC: ED 20:26 → TUOBSINP 22:56 → EDINP 05-29 03:04 → OBSVTOIN 05-29 08:43 → ICU 05-29 10:41
PROVIDERS: ADMIT Emergency Medicine; ATTEND Hospitalist
DX: T39.1X2A Poisoning by 4-Aminophenol derivatives, intentional self-harm, initial encounter (principal); E11.65 Type 2 diabetes mellitus with hyperglycemia; I10 Essential (primary) hypertension; E87.1 Hypo-osmolality and hyponatremia; E32.9 Disease of thymus, unspecified; K21.9 Gastro-esophageal reflux disease without esophagitis; J45.909 Unspecified asthma, uncomplicated; F17.210 Nicotine dependence, cigarettes, uncomplicated; J44.9 Chronic obstructive pulmonary disease, unspecified; Z79.84 Long term (current) use of oral hypoglycemic drugs; Z79.899 Other long term (current) drug therapy
CPT/HCPCS: 36415; 80048; 80053; 80307; 80329; 82043; 82962; 83036; 85025; 85610; 85730; 87641; 90471; 90732; 93005; 96365; 96372; 99285; 99406; G0237; G0378; J0132; J0360; J1650; J2405; J2550; J3490; J7070